=== PATIENT | female | born 1985 | race Caucasian/White ===

== ENCOUNTER 2018-11-12 08:29 | Emergency (ER) | payer SELFPAY ==
[2018-11-12 08:46] VITALS: BP 161/101
--- NOTE | 2018-11-12 08:52 | UC ---
Lower Extremity/Ankle HPI - HPI Summary HPI Summary: Patient presents with 5 days progressive right posterior popliteal pain. Patient states pain has been a little progressive to her proximal calf. Patient has taken Motrin Tylenol short-term relief although it's not helping as well as it had been. No paresthesias. No weakness. Patient denies trauma. No history of blood clots. Patient is not on control hormone replacement. Patient has never had blood clots or DVTs or family history of similar. No recent travel. Patient does not smoke. Patient is a mom of 5 children of the to 13 is states she is very active but does not remember specific trauma. No fevers, chills, rash. No redness or warmth. Patient's medications reviewed this visit. - History of Current Complaint Chief Complaint: UCLowerExtremity Stated Complaint: R LEG PAIN Time Seen by Provider: 11/12/18 08:51 Hx Obtained From: Patient Hx Last Menstrual Period: 10/22/18 Pain Intensity: 6 - Allergies/Home Medications Allergies/Adverse Reactions: Allergies Allergy/AdvReac Type Severity Reaction Status Date / Time No Known Allergies Allergy Verified 11/12/18 08:37 PMH/Surg Hx/FS Hx/Imm Hx Previously Healthy: Yes - Surgical History Surgical History: Yes Surgery Procedure, Year, and Place: gallbladder 11/20/2014. 2014 - Family History Known Family History: Positive: Other - no family hx DVT, Non-Contributory - Social History Occupation: Works From/At Home Lives: With Family Alcohol Use: Rare Substance Use Type: None Smoking Status (MU): Never Smoked Tobacco - Immunization History Most Recent Influenza Vaccination: 2011 Most Recent Tetanus Shot: unknown Most Recent Pneumonia Vaccination: none Review of Systems All Other Systems Reviewed And Are Negative: Yes Constitutional: Positive: Negative. Negative: Fever Skin: Positive: Negative. Negative: Rash, Bruising Physical Exam - Summary Physical Exam Summary: Vital Signs Reviewed: Yes A+Ox3, no distress Eyes: Conjunctiva Clear ENT: Hearing grossly normal Neck: Positive: Supple Respiratory: Positive: No respiratory distress, No accessory muscle use Cardiovascular: 2+ DP, PT , popliteal Musculoskeletal Exam: + SLE + flex/ext knee, ankle Neg pain with palp of bilateral joint line neg anterior/posterior drawer + TTP lateral aspect poplteal fossa No calf edema joing stability with testing Neurological: Positive: Alert, + sensation throughout Psychological: Positive: Normal Response To Family Skin: Positive: no rash, no ecchymosis Triage Information Reviewed: Yes Vital Signs: Initial Vital Signs Temp 98 F 11/12/18 08:37 Pulse 81 11/12/18 08:37 Resp 18 11/12/18 08:37 BP 161/101 11/12/18 08:37 Pulse Ox 98 11/12/18 08:37 Diagnostics - Radiology No standard instances Radiology Interpretation Completed By: Radiologist - Patient Name: BETO FAM Medical Record#: [id number] Ordering Physician: Leticia Galicia MD Acct.#: [id number] : 1985 Age: 33 Sex: F Location: [facility] Exam Date: 11/12/18858 ADM Status: REG ER Order Information: VL LOWER EXT VEINS RIGHT Accession Number: [id number] CPT: 76938 HISTORY: poplieal pain x 5 days: dvt vs gaines cyst COMPARISONS: None relevant TECHNIQUE: Multiple transverse and longitudinal ultrasound images were obtained of the right lower extremity from the level of the common femoral vein inferiorly through to the infrapopliteal veins using grayscale, color Doppler, and spectral Doppler imaging with and without compression and with augmentation. Comparison images were obtained of the contralateral common femoral vein. FINDINGS: VEINS: The venous system of the right lower extremity is compressible throughout its course, with normal flow on color Doppler imaging and normal response to augmentation on spectral Doppler imaging. SOFT TISSUES: Unremarkable. OTHER FINDINGS: There is a 7.6 x 1.7 x 3.6 cm cyst of the popliteal fossa. IMPRESSION: NO RIGHT LOWER EXTREMITY DEEP VEIN THROMBOSIS GAINES'S CYST. <Electronically signed by Darnell Delgado MD in OV> 11/12/18957 Dictated By: Darnell Delgado MD Dictated Date/Time: 11/12 Transcribed Date/Time: 11/12/18957 Copy to: CC:Gregorio Valladares MD; Leticia Galicia MD Imaging - [facility] [id number] [place] [id number] ph ([phone]) ph ([phone]) ph ([phone]) This report is only to be considered final once signed by the Provider(s) as displayed in the "<Electronically Signed by > " field (s). Absence of a signature indicates the report is in a draft status and still needs to be finalized. In the event this document was created by someone other than the signing Provider, the individual initiating the document will be listed in the "Entered by:" or "Dictated by:" dougherty. 1 of Re-Evaluation - Re-Evaluation First Eval Comment: reviewed us with pt. rosangela wrap. crutches. referral to sports med or ortho. return precaution. pt comfortable and in agreement with plan Lower Extremity Course/Dx - Course Course Of Treatment: Patient presents to urgent care with 5 days of right popliteal fossa proximal calf pain. Patient denies trauma. Patient has taken Motrin Tylenol some relief. Patient denies any edema. No ecchymosis or rash. No fevers or chills. Patient states she's walking with a limp secondary to pain. No history of similar. No DVT risk on screening. Differential includes strain or sprain, Gaines's cyst, DVT. We'll check ultrasound. Patient cut analgesia here. We'll reassess. Patient comfortable in agreement with plan. Of note, patient markedly hypertensive. Patient advised to follow-up with primary. Will recheck prior to discharge - Differential Dx/Diagnosis Provider Diagnosis: Gaines's cyst of knee Discharge - Sign-Out/Discharge Documenting (check all that apply): Patient Departure All imaging exams completed and their final reports reviewed: Yes - Discharge Plan Condition: Stable Disposition: HOME Patient Education Materials: Bakers Cyst (ED) Forms: *Gen. Provider Communication Referrals: Gregorio Valladares MD [Primary Care Provider] - [facility] [Provider Group] (Call to schedule a follow-up appointment) Additional Instructions: - use rosangela wrap for comfort and support - use crutches until you can walk normally without a limp - Alternate ibuprofen (advil, Motrin) 600mg and tylenol every 3 hours for pain. Take with food. Do NOT take for more than 4-5 days - contact the sports medicine provider today to schedule a follow-up appointment later today or Thursday - apply heat to the back of your leg 2-3 times a day - of you develop leg weakness, uncontrolled pain or any other concerns it is recommended you go directly to the emergency department - Billing Disposition and Condition Condition: STABLE Disposition: Home
== END 2018-11-12 10:28 | disposition home or self-care (01) ==
LOC: UCEAST 08:29
DX: M71.21 Synovial cyst of popliteal space [Baker], right knee (principal)
CPT/HCPCS: 99203; G0463